=== PATIENT | male | born 1960 | race Caucasian/White ===

== ENCOUNTER → 2019-02-18 | Outpatient (CLI) | payer OTHER ==
[2019-02-18] VITALS (7 sets, daily range): BP systolic 144–160; BP diastolic 70–78
[~2019-02-18] MED LIST: ASA81BEC PO; MOBIC7.5 MG PO; NORVASC5 MG PO; SORINE 80 MG TA80 M1 PO; TRAMADOL 50 MG50 MG PO
[2019-02-18 12:55] LABS: HEMATOCRIT 48.3 % (42.0-52.0); HEMOGLOBIN 16.1 gm/dL (14.0-18.0); MCH 31.2 pg (26.0-34.0); MCHC 33.4 g/dL (28.0-37.0); MCV 93.5 fL (80.0-100.0); MPV 9.6 fl. (7.2-11.1); RBC 5.17 mil/uL (4.50-6.00); RDW-CV 15.5 % (10.5-14.5); WBC 9.1 thou/uL (4.0-11.0)
[2019-02-18 13:12] LABS: PROTIME 10.7 Seconds (9.20-11.50)
[2019-02-18 13:22] LABS: CALCIUM 9.2 mg/dL (8.5-10.1); CREATININE 0.9 mg/dL (0.6-1.3)
[2019-02-18 13:27] LABS: ALBUMIN 4.4 g/dL (3.4-5.0); TOTAL BILIRUBIN 0.7 mg/dL (<0.1-1.0); TOTAL PROTEIN 7.6 g/dL (6.4-8.2)
--- NOTE | 2019-02-18 15:07 | EKG ---
[place] [address] ELECTROCARDIOGRAM REPORT Name: AMRIK MAC Room: [facility]#: [id number] Admission: 02/18/19 Attend Phys: Walker Bourgeois MD Discharge: Date of : 60 Report #: [id number] THIS REPORT FOR: //name// [facility] Test Date: 2019-02-18 Test Time: 13:47:27 Pat Name: AMRIK MAC Department: Room: Gender: M [place] Reporter: RT : 1960 Requested By: Walker Bourgeois Order Number: [id number] Reading MD: Walker Bourgeois Measurements Intervals [place] Rate: 66 P: 71 AK: 235 QRS: 83 QRSD: 110 T: 14 QT: 472 QTc: 495 Interpretive Statements Sinus rhythm Prolonged AK interval Consider left atrial enlargement RSR' in V1 or V2, probably normal variant Borderline prolonged QT interval No previous ECG available for comparison Electronically Signed On 02-18-2019 15:07:39 CDT by Walker Bourgeois [email or web address] <ELECTRONICALLY SIGNED> By: Walker Bourgeois MD, [facility] 02/18/19 1507 1347 46 Walker Bourgeois MD, FACC /EPI
== END ==
LOC: M.CL 02-04 11:00
PROVIDERS: Internal Medicine Cardiovascular Disease
DX: I48.92 Unspecified atrial flutter (principal); I10 Essential (primary) hypertension; Z79.82 Long term (current) use of aspirin